=== PATIENT | female | born 1935 | race Caucasian/White ===

== ENCOUNTER 2018-12-20 12:45 | Inpatient (IN) | payer MEDICARE ==
--- NOTE | 2018-12-20 12:59 | CT ---
CT BRAIN WITHOUT CONTRAST: HISTORY:Stroke alert. Slurred speech COMPARISON:02/20/2016 FINDINGS: There are foci of decreased attenuation in the periventricular white matter, consistent with chronic small vessel ischemic disease. Changes of cortical atrophy is stable. No evidence of acute infarct, hemorrhage, midline shift or abnormal extra-axial fluid collections is seen. The ventricular size is appropriate and the basilar cisterns are patent. The bony calvarium is intact. The visualized paranasal sinuses and mastoid air cells are well aerated. IMPRESSION: No CT evidence of acute intracranial process. Discussed over the telephone with ER physician Dr. Mooney at 12:55 PM
[2018-12-20 13:17] LABS: #Eosinphils 0.1 thou/uL (0.0-0.7); #Lymphocytes 0.5 thou/uL (1.20-3.40); #Monocytes 0.4 thou/uL (0.11-0.59); #Neutrophils 4.7 thou/uL (1.40-6.50); %Basophils 0.9 % (0.0-1.0); %Lymphocytes 9.1 % (21.0-51.0); %Monocytes 6.4 % (0.0-10.0); %Neutrophils 82.7 % (42.0-75.0); Hemoglobin 12.8 g/dL (12.0-16.0); Mean Corpuscular HGB CONC 34.2 g/dL (32.0-36.0); Mean Corpuscular Hemoglobin 30.6 pg (27.0-31.0); Mean Corpuscular Volume 89.5 fL (78.0-98.0); Platelet Count 164 thou/uL (130-400); RBC Distribution Width 12.4 % (11.5-14.5); Red Blood Cell (RBC) Count 4.17 mill/uL (4.20-5.40); White Blood Cell (WBC) Count 5.6 thou/uL (4.8-10.8)
[2018-12-20] MEDS ORDERED: Aspirin Chewable 81 MG TAB ONE (13:25)
[2018-12-20 13:33] LABS: INR-International Normal Ratio 1.1; Prothrombin Time 14.3 SEC (12.0-14.7)
[2018-12-20 13:34] LABS: PTT 43.9 SEC (22.9-36.1)
[2018-12-20 13:43] LABS: ALT (SGPT) 9 U/L (8-55); AST (SGOT) 17 U/L (5-34); Alkaline Phosphatase 63 U/L (40-150); Anion Gap 12 mmol/L (10-20); BUN (Urea Nitrogen) 18 mg/dL (9.8-20.1); Bilirubin, Total 0.7 mg/dL (0.2-1.2); CK (CPK) 25 U/L (29-168); Calc. Creatinine Clearance 0 mL/min (70-130); Calcium 9.2 mg/dL (7.8-10.44); Carbon Dioxide 26 mmol/L (23-31); Chloride 92 mmol/L (98-107); Estimated GFR-MDRD 58; Globulin 2.3 g/dL (2.4-3.5); Glucose 110 mg/dL (83-110); Magnesium 1.7 mg/dL (1.6-2.6); Potassium 3.7 mmol/L (3.5-5.1); Protein, Total 6.3 g/dL (6.0-8.3); Sodium 126 mmol/L (136-145)
[2018-12-20 14:38] LABS: Bacteria/HPF None Seen HPF (None Seen); Bilirubin Negative (Negative); Blood, Urine 1+ (Negative); Clarity Clear (Clear); Glucose, Urine (Dipstick) Normal (Negative); Leukocyte Negative Leu/uL (Negative); Nitrite Negative (Negative); Protein, Urine (Dipstick) 20 mg/dL (Neg-Trace); Squamous Epithelial None Seen HPF (0-3); Urobilinogen Normal mg/dL (Less than 2); WBC/HPF 0-3 HPF (0-3)
[2018-12-20] MEDS ORDERED: ISOVUE-370 76%-LOCM 1 ML ONE (15:07)
--- NOTE | 2018-12-20 15:12 | CT ---
CTA HEAD WITH IV CONTRAST AND 3D POSTPROCESSING CTA NECK WITH IV CONTRAST AND 3D POSTPROCESSING: Date: 12/20/18 HISTORY: Slurred speech, stroke alert. FINDINGS: Calcified plaque is noted in the vertebral arteries and the carotid arteries. There is about 40% sten osis by NASCET criteria in the right proximal ICA. No major branch occlusion, aneurysm formation, or high grade stenosis is seen in the vertebrobasilar or internal carotid arterial systems. There is ect ugo of the thoracic aorta with the ascending thoracic aorta measuring 4.0 cm in diameter. The upper lung resendez are unremarkable. There are dependent changes in the spine. There is an 8 mm low density lesion in the right lobe of the thyroid gland. IMPRESSION: No significant abnormalities are seen. Discussed over the telephone with ER physician, Dr. Mooney, at 1316 hours. CODE CR. POS: [facility]
[2018-12-20] MEDS ORDERED: hydrALAZINE 20 MG/ML VIAL SLOW IVP PRN (17:23)
[2018-12-20] MEDS ORDERED: Senokot 8.6 MG TAB PO PRN (17:52)
[2018-12-20] MEDS ORDERED: Famotidine 20 MG TAB PO PRN (17:52)
[2018-12-20] MEDS ORDERED: Acetaminophen 650 MG Suppository PR PRN (17:53)
[2018-12-20] MEDS ORDERED: Ondansetron PF 4 MG/2 ML Vial IVP PRN (17:53)
[2018-12-20] MEDS ORDERED: Acetaminophen 325 MG TAB PO PRN (17:53)
[2018-12-20] MEDS ORDERED: Ondansetron ODT 4 MG TAB PO PRN (17:53)
[2018-12-20] MEDS: traMADol HCl 50 MG TAB PO SCH (20:34)
[2018-12-20] MEDS: Rosuvastatin 20 MG TAB PO SCH (20:34)
[2018-12-20] MEDS: Lisinopril 10 MG TAB PO SCH (20:35)
[2018-12-20] MEDS: Famotidine/PF 20 mg/2ml Vial SLOW IVP SCH (20:51)
[2018-12-21 04:29] LABS: #Eosinphils 0.1 thou/uL (0.0-0.7); #Lymphocytes 1.2 thou/uL (1.20-3.40); #Monocytes 0.5 thou/uL (0.11-0.59); #Neutrophils 3.3 thou/uL (1.40-6.50); %Basophils 0.8 % (0.0-1.0); %Eosinophils 2.3 % (0.0-10.0); %Neutrophils 64.8 % (42.0-75.0); Hemoglobin 11.9 g/dL (12.0-16.0); Mean Corpuscular HGB CONC 35.3 g/dL (32.0-36.0); Mean Corpuscular Hemoglobin 31.4 pg (27.0-31.0); Platelet Count 156 thou/uL (130-400); RBC Distribution Width 12.4 % (11.5-14.5); White Blood Cell (WBC) Count 5.1 thou/uL (4.8-10.8)
[2018-12-21 04:52] LABS: Anion Gap 10 mmol/L (10-20); BUN (Urea Nitrogen) 17 mg/dL (9.8-20.1); Calc. Creatinine Clearance 44 mL/min (70-130); Calcium 9.4 mg/dL (7.8-10.44); Carbon Dioxide 26 mmol/L (23-31); Cardiac Risk 2.6 (Less than 4.5); Chloride 96 mmol/L (98-107); Cholesterol 135 mg/dl (< 200 Desired); Estimated GFR-MDRD 63; Glucose 98 mg/dL (83-110); HDL Cholesterol 52 mg/dL (>60 Neg Risk); LDL Cholesterol, Calculated 70 mg/dL; Potassium 4.1 mmol/L (3.5-5.1); Sodium 128 mmol/L (136-145); Triglycerides 63 mg/dL (Less than 150)
--- NOTE | 2018-12-21 07:37 | HP ---
PRIMARY CARE PHYSICIAN: Dr. Amador. CHIEF COMPLAINT: Slurred speech and fatigue. HISTORY OF PRESENT ILLNESS: Ms. Horowitz is a very pleasant 83-year-old woman with a known history of hypertension, who presents due to concerns of her slurred speech that she developed at approximately 11:30 a.m. She also reported difficulty finding her words. On arrival to the emergency department, she was noted to have an elevated blood pressure of 233/79. Her blood pressure remained in the 200s range while she was in the emergency department. She underwent initial workup for suspected stroke including a CT of the brain that showed no CT evidence of acute intracranial process. This was followed by a CT angiogram of the head and neck demonstrating no significant abnormalities. On assessment in the emergency department, the dysarthria had settled, but her speech was somewhat slurred. She had no extremity numbness or weakness. The patient states she has been struggling with intermittent dizziness, particularly more noticeable when she stands. She has been undergoing adjustment of her blood pressure medications and recently had a decrease in her blood pressure medication by 5 mg as it was suspected the medication was causing her dizziness. She was instructed to keep a log of her blood pressures including orthostatic BPs. Currently, she has been taking lisinopril 10 mg twice a day. While checking her blood pressure for the last week she has noted a significant drop ranging from a difference of 20 to 40. The patient states she is not always symptomatic with the orthostasis. She states she has been maintaining adequate hydration and was instructed by Dr. Amador to drink Gatorade. She denies having any chest pain, palpitations, or shortness of breath. She does, however, report being extremely fatigued for the last week. In the last couple of days, she has been sleeping excessively. She went to bed early last night, woke up for breakfast around 7:00 and went back to bed for another 3 hours. The patient does report falls x2 in the last couple of weeks. She states at one time, it was in the living room and she managed to catch herself with a coffee table; another time, was in the bathroom and she managed to catch her fall again. Has not sustained any head injuries, was evaluated by Dr. Amador following these falls. REVIEW OF SYSTEMS: She denies having any fevers, chills, or sweats. Denies any diarrhea and in fact, suffers from chronic constipation. Denies any dysuria or hematuria. No recent cough. All other review of systems are negative. PAST MEDICAL HISTORY: 1. Hypertension. 2. Degenerative disk disease. PAST SURGICAL HISTORY: Cyst removed from her neck. SOCIAL HISTORY: The patient lives with her family. Up until 2 weeks ago, she was walking independently. She is now requiring a cane due to occasional dizziness. The patient denies any alcohol use, tobacco use, or drug use. ALLERGIES: CODEINE, SULFATE. CURRENT MEDICATIONS: 1. Tramadol. 2. Prilosec OTC. 3. Lisinopril. PHYSICAL EXAMINATION: GENERAL: The patient appears thin, well developed, and in no acute distress. VITAL SIGNS: Temperature 98.4, pulse 75, respirations 18, O2 saturation 97% on room air, blood pressure 97/54; however, it was just repeated and blood pressure was 187. HEENT: Normocephalic and atraumatic. Pupils are equal, round, and reactive to light. Extraocular movements intact. No nystagmus present. Oropharynx is clear. Lips dry. Oral mucous without any lesions or sores. NECK: Supple. LUNGS: Clear to auscultation bilaterally without any wheezes, rales, or rhonchi. CARDIAC: Regular rate and rhythm. ABDOMEN: Soft, nontender, nondistended. Normoactive bowel sounds present. EXTREMITIES: No lower leg swelling or edema. NEUROLOGIC: Alert and oriented x3. Speech normal. Facial movements normal. Strength 5/5 in all extremities. No neuro deficits on exam. SKIN: Without rash or jaundice. LABORATORY DATA: Full blood count unremarkable. Sodium 126, potassium 3.7, chloride 92, anion gap 12, carbon oxide 26, BUN 19, creatinine 0.93, GFR 58, glucose 110, calcium 9.2, magnesium 1.7. LFTs unremarkable. CK 25. Alkaline phosphatase 63, albumin 4.9. Urinalysis notable for 1+ blood and 4 to 6 red blood cells, but no bacteria, no nitrites, leukocyte esterase or white blood cells. IMAGING DATA: As above. IMPRESSION AND PLAN: Ms. Horowitz is a very pleasant 83-year-old woman, presenting with slurred speech and dysarthria. Symptoms have resolved. She had severely elevated blood pressure of 230 systolic on arrival. Her blood pressure has settled. She was treated with aspirin in the emergency department and referred for stroke evaluation. 1. Transient ischemic attack. We will obtain MRI of the brain. She has undergone CT angiogram of the head and neck, which was unremarkable. Therefore, no carotid Dopplers . Neurology consult has been placed. 2. Orthostasis. The patient has documented blood pressures and continued droppage in her lying and standing blood pressures of 20 to 40. We will repeat orthostatic blood pressures here. This very well may be the cause of her dizziness, though she does not seem to be on any medications that would contribute to this and states she has been maintaining adequate hydration. The patient does have a low sodium of 126, which is lower than it has been in recent visits. We will give IV fluids and monitor her sodium. Echo has been requested. 3. Hypertension. We will continue to monitor blood pressure and resume home medications. 4. Gastrointestinal prophylaxis. 5. Deep venous thrombosis prophylaxis with mechanical SCDs. 6. Generalized fatigue. We will rule out any underlying infection. We will obtain PT/OT consult. 7. Code status. DNAR. Her surrogate decision maker is her daughter, Terri Conner. The patient states she has had advanced directives in place for a few years. The patient's case was discussed with Dr. Valente, who agrees with the plan of care as described above. Job ID: [id number]
[2018-12-21] MEDS: Lisinopril 10 MG TAB PO SCH ×2 (08:29→20:59)
[2018-12-21] MEDS: traMADol HCl 50 MG TAB PO SCH ×2 (08:29→21:00)
[2018-12-21] MEDS: Aspirin 81 mg Enteric Coated Tablet PO SCH (08:29)
[2018-12-21] MEDS: Famotidine/PF 20 mg/2ml Vial SLOW IVP SCH ×2 (08:30→20:59)
[2018-12-21] MEDS ORDERED: Lorazepam 0.5 MG TAB PO SCH (09:45)
--- NOTE | 2018-12-21 15:14 | RAD ---
CHEST 2 VIEWS: Date: 12/21/18 HISTORY: Dizziness and shortness of breath. FINDINGS: The heart size is normal. The aorta is tortuous. The lungs are well expanded without lobar consolidat ion, pneumothoraces, or pleural effusions. There are degenerative changes in the spine. IMPRESSION: No radiographic evidence of acute cardiopulmonary process. POS: [facility]
--- NOTE | 2018-12-21 15:20 | MRI ---
MRI BRAIN WITHOUT CONTRAST: INDICATION: TIA. COMPARISON: Comparison is made to MRI of brain 02/21/2016. FINDINGS: Motion artifact degrades all sequences. There is mild cortical volume loss. Mild chronic ischemic white matter changes which appear stable f 2015. No evidence of restricted diffusion. No evidence of mass, edema, or acute infarct. 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 This is a stable finding from 2016. The intracranial internal carotid arteries are patent. Proximal cerebral arteries and basilar arteries show expected flow voids. IMPRESSION: Mild cortical atrophy and mild to moderate chronic ischemic white matter changes which appear stable from 2016. No evidence of acute infarct. POS: [facility]
--- NOTE | 2018-12-21 16:04 | PDOC.HOSPP ---
- Subjective Encounter Date: 12/21/18 Encounter Time: 16:00 Subjective: Patient found resting comfortably. She is without any complaints. Seems to be in good spirits. Per daughter and granddaughter she was drowsy and confused after the MRI. Had been given 0.5 mg PO of ativan due to claustrophobia. Patient alert to person and place. Speech is normal. Per family she was recently seen by pcp who discontinued amlodipine 5 mg PO daily. She was on Lisinopril 20 mg at bedtime and this was changed to 10 mg bid. There was a similar problem with her blood pressure in the past and it had stabilized, however recently became uncontrolled. She has been experiencing lightheadedness when standing and when leaning forward she gets dizzy and starts to fall head first. Has had several falls in the last couple of weeks because of this. Family concerned it may be due to the patient reacting to the warm weather and increasing her free water intake at home. She had not been drinking much fluids while here. Spends most of her time sleeping at home. Two weeks ago was functioning well and walking independently. - Objective Vital Signs & Weight: Vital Signs (12 hours) Temp Pulse Pulse Pulse Pulse Pulse Pulse 12/21/18 15:42 97.7 F 73 12/21/18 12:00 98.3 F 71 12/21/18 09:48 82 83 90 86 12/21/18 09:20 73 75 88 94 86 12/21/18 08:30 12/21/18 08:29 12/21/18 07:56 97.9 F 65 Resp BP BP BP BP BP BP 12/21/18 15:42 16 12/21/18 12:00 16 12/21/18 09:48 99/53 L 103/43 L 128/95 H 197/69 H 12/21/18 09:20 152/65 H 145/63 H 98/41 L 114/56 L 147/59 H 12/21/18 08:30 12/21/18 08:29 145/52 H 12/21/18 07:56 17 BP Pulse Ox 12/21/18 15:42 136/49 L 95 12/21/18 12:00 200/64 H 94 L 12/21/18 09:48 12/21/18 09:20 12/21/18 08:30 95 12/21/18 08:29 12/21/18 07:56 145/52 H 95 Weight Admit Weight 123 lb Weight 123 lb I&O: 12/20/18 12/21/18 12/22/18 06:59 06:59 06:59 Intake Total 410 240 Balance 410 240 Result Diagrams: 12/22/18 04:25 12/22/18 04:25 ROS - Review of Systems Constitutional: denies: fever, chills, sweats, weakness, malaise, other Eyes: denies: pain, vision change, conjunctivae inflammation, eyelid inflammation, redness, other ENT: denies: ear pain, ear discharge, nose pain, nose discharge, nose congestion , mouth pain, mouth swelling, throat pain, throat swelling, other Respiratory: denies: cough, dry, shortness of breath, hemoptysis, SOB with excertion, pleuritic pain, sputum, wheezing, other Cardiovascular: reports: light headedness (per patient she has not been as lightheaded). denies: chest pain, palpitations, orthopnea, paroxysmal noc. dyspnea, edema, other Gastrointestinal: denies: nausea, vomitting, abdominal pain, diarrhea, constipation, melena, hematochezia, other Genitourinary: denies: dysuria, frequency, incontinence, hematuria, retention, other Musculoskeletal: denies: neck pain, shoulder pain, arm pain, back pain, hand pain, leg pain, foot pain, other Skin: denies: rash, lesions, radha, bruising, other Neurological: reports: confusion - Medication Medications: Active Medications Generic Name Dose Route Start Last Admin Trade Name Freq PRN Reason Stop Dose Admin Aspirin 81 mg 12/21/18 09:00 12/21/18 08:29 Ecotrin PO 81 mg DAILY LILLIE Administration Famotidine 20 mg 12/20/18 21:00 12/21/18 08:30 Pepcid SLOW IVP 20 mg Q12HR LILLIE Administration Lisinopril 10 mg 12/20/18 21:00 12/21/18 08:29 Zestril PO 10 mg BID LILLIE Administration Rosuvastatin Calcium 20 mg 12/20/18 21:00 12/20/18 20:34 Crestor PO 20 mg HS LILLIE Administration Sodium Chloride 10 ml 12/20/18 17:23 12/21/18 08:30 Flush - Normal Saline IVF 10 ml PRN PRN Administration Saline Flush Tramadol HCl 50 mg 12/20/18 21:00 12/21/18 08:29 Ultram PO 50 mg BID LILLIE Administration - Exam NAD, awake alert Eye: PERRL, anicteric sclera ENT: normocephalic atraumatic, no oropharyngeal lesions, moist mucosa Neck: supple, no lymphadenopathy Heart: RRR, no murmur, no gallops, no rubs Respiratory: CTAB Gastrointestinal: soft, non-tender, non-distended Extremities: no cyanosis, no clubbing, no edema Skin: no lesions, no rashes Neurological: normal sensation to touch, no new deficit Musculoskeletal: normal tone, normal strength Psychiatric: normal affect, oriented to person, oriented to place (slightly confused, was sleeping but easily woken) Hosp A/P (1) Slurred speech Code(s): R47.81 - SLURRED SPEECH Status: Resolved (2) Orthostatic hypotension Code(s): I95.1 - ORTHOSTATIC HYPOTENSION Status: Acute (3) Hyponatremia Code(s): E87.1 - HYPO-OSMOLALITY AND HYPONATREMIA Status: Acute - Plan PT/OT Na+ slightly improved. Gentle hydration given decreased fluid intake as she has been sleeping. Awaiting cardiology review. Slightly confused and drowsy after ativan, will monitor. PT/OT following, patient with good strength. Patient in need of rolling walker.
[2018-12-21] MEDS: Sodium Chloride 0.9% 1,000 ML IV SCH (17:22)
[2018-12-21] MEDS: Rosuvastatin 20 MG TAB PO SCH (21:01)
--- NOTE | 2018-12-21 21:07 | CON ---
DATE OF TELEMEDICINE CONSULTATION: 12/21/2018 RN accompanying is Quinton Mohr. CHIEF COMPLAINT: Weakness. HISTORY OF PRESENT ILLNESS: The patient's family gave medical history. The patient has been pretty weak for the last 2 to 3 weeks. She has had issues with orthostatic hypotension. Her blood pressure can go from 215/100 down to 90/45. She has increased sleepiness, nausea, and at about 11:00 a.m. yesterday, she had slurred speech, which lasted 1.5 hours. They could not understand her. Right before that, she felt like her hands were tingly. She has had increased falls lately. She has not had any weakness or loss of consciousness or vision problems. PREVIOUS MEDICAL HISTORY: Positive for hypertension, degenerative joint disease in her back with chronic back pain. She received nerve block recently and is scheduled for another procedure. She also has hyponatremia in the past. PAST SURGICAL HISTORY: She had a subcutaneous neck cyst and had vein stripping years ago. SOCIAL HISTORY: She lives by self, stays close to family about 50% of the time. ALLERGIES: SHE IS ALLERGIC TO CODEINE, WHICH CAUSES NAUSEA AND SHE ALSO IS ALLERGIC TO SULFATE, UNCLEAR WHAT ALLERGY IT IS. FAMILY HISTORY: Dad passed at 47 years of age from TB. Mother at 86. She was a smoker, COPD and had heart disease. She is not on aspirin or statin at home. REVIEW OF SYSTEMS: PULMONARY: Negative for shortness of breath and cough. GI: Negative for nausea, vomiting, or diarrhea. HEMATOLOGIC: Negative for bleeding or diatheses. NEUROLOGIC: Positive for slurred speech. DERMATOLOGIC: Negative. LABORATORY WORKUP: White count 5.1, hemoglobin 11.9, hematocrit 33.8, and platelet count 156. Chemistry; sodium 128, potassium 4.1, chloride 96, bicarb 26, BUN 17 , creatinine 0.86, and glucose 98. Cholesterol panel is normal. BNP 704. TSH 0.[address] [place] was negative for any critical stenosis of her arteries and CT angiography of the neck was also negative for any specific abnormalities and her MRI of the brain was completed and MRI showed mild cortical atrophy, [id number] chronic ischemic white matter changes which are stable. No acute infarct. PHYSICAL EXAMINATION: VITAL SIGNS: Temperature 97.9, pulse 65, blood pressure 145/52, and respiratory rate 17. GENERAL APPEARANCE: Well-built, well-nourished lady. CHEST: Clear vesicular breathing. CARDIOVASCULAR: S1 and S2 heard. No murmurs. ABDOMEN: Soft and nontender. No organomegaly noted. NEUROLOGIC: Higher intellectual functions normal. Orientation to time, place, and person. Appropriate conversation. Cranial nerves 2 through 12 normal. Pupils are reactive, 2 mm. No facial asymmetry. Normal sensation of face. Normal elevation of palate. Tongue midline. Normal hearing. Motor examination, no pronator drift was noted. Strength was 5/5 throughout in upper and lower extremities in iliopsoas, hamstrings, quadriceps, ankle dorsiflexion, plantar flexion, deltoid, biceps, triceps, wrist extension and flexion, finger extension and flexion. Deep tendon reflexes 2+. Sensory normal to touch, normal bilaterally. Cerebellar, normal [id number]. Gait, she was able to walk with a walker. IMPRESSION: The patient is an 83-year-old lady with a history of slurred speech and orthostatic hypotension and the slurred speech lasted about 1.5 hours. She also has chronic back pain and has had recent procedure. Her examination was essentially normal. She had hyponatremia on her lab workup. MRI is negative for any acute stroke. I suspect her blood pressure might have caused her to have slurred speech. She may also have had a transient ischemic attack. RECOMMENDATIONS: Start her on aspirin and statin. Please complete her TIA workup including echocardiogram. Please have her follow up with her primary care doctor. Call me if you have any further questions. Job ID: [id number] MTDD
--- NOTE | 2018-12-22 03:25 | CON ---
DATE OF CONSULTATION: HISTORY OF PRESENT ILLNESS: Maureen Horowitz is a pleasant 83-year-old white female who is admitted after an episode of weakness and slurred speech that she developed on December 20 at 11:30 a.m. The family stated that they checked her blood pressure at that time, and it was 105 systolic. When she arrived to the emergency room, her blood pressure was 233/79 and her symptoms had resolved. She underwent CT of the brain, which was unremarkable. CT angiography and [place] angiography were normal. She underwent MRI of the brain, which did not show any evidence of stroke. She was given Ativan prior to the MRI, and since then has been very somnolent and disoriented according to the family. The patient denies any chest discomfort or shortness of breath. She was seen by Dr. Shankar in February 2016 in the hospital when she had a syncopal episode after starting hydrochlorothiazide. Family states that usually when she is supine in bed, she does not have any problems, and whenever she stands up, she becomes dizzy and lightheaded. PAST MEDICAL HISTORY: Labile hypertension and orthostatic hypotension, osteoarthritis, reflux. OPERATIONS: Cyst removed from neck. MEDICATIONS: At home, 1. Pepcid 10 mg b.i.d. p.r.n. 2. Lisinopril 10 mg b.i.d. 3. Omeprazole 20 daily. 4. Senokot p.r.n. 5. Ultram 50 b.i.d. ALLERGIES: CODEINE. SOCIAL HISTORY: She does not smoke or drink. REVIEW OF SYSTEMS: Unobtainable due to the patient's confusion at this time. PHYSICAL EXAMINATION: VITAL SIGNS: Blood pressure 200/64, pulse of 71, and also blood pressures as low as 98/41. It is unclear if these are orthostatic blood pressures. HEENT: PERRL. NECK: Supple. CHEST: Clear. CARDIAC: S1 and S2 normal without any S3 or S4. There is a 2/6 systolic ejection murmur at the apex. Carotid upstrokes normal without bruits. ABDOMEN: Normal bowel sounds without tenderness or organomegaly. EXTREMITIES: Revealed no clubbing, cyanosis, or edema. NEUROLOGIC: Grossly intact except for the patient's confusion. LABORATORY DATA: EKG revealed normal sinus rhythm, left axis deviation, possible septal infarction. Hemoglobin 11.9, hematocrit 33.8, white count 5100, platelets 156,000. Sodium 128, potassium 4.1, chloride 96, carbon dioxide 26, BUN 17, creatinine 0.86. Cholesterol 135, triglycerides 63, HDL 52, LDL 70. BNP 704.7. TSH is normal. IMPRESSION: 1. Orthostatic hypotension with neurological symptoms of slurred speech, which apparently only lasted several minutes. 2. Hypertension. 3. Gastroesophageal reflux disease. 4. History of bradycardia in the past. 5. Hyponatremia, which certainly could be due to the MARICEL inhibitor. PLAN: Echocardiogram will be performed. A.M. cortisol level will be obtained in the morning to rule out adrenal insufficiency. This certainly is a very difficult problem to treat and this was discussed with the patient and daughter. I will follow the patient with you. Job ID: [id number]
[2018-12-22 04:40] LABS: #Eosinphils 0.2 thou/uL (0.0-0.7); #Monocytes 0.5 thou/uL (0.11-0.59); #Neutrophils 3.3 thou/uL (1.40-6.50); %Basophils 0.7 % (0.0-1.0); %Eosinophils 4.6 % (0.0-10.0); %Lymphocytes 19.2 % (21.0-51.0); %Monocytes 9.3 % (0.0-10.0); %Neutrophils 66.2 % (42.0-75.0); Hemoglobin 11.3 g/dL (12.0-16.0); Mean Corpuscular HGB CONC 33.8 g/dL (32.0-36.0); Mean Corpuscular Hemoglobin 30.6 pg (27.0-31.0); Mean Corpuscular Volume 90.5 fL (78.0-98.0); Mean Platelet Volume 6.8 fL (7.4-10.4); Platelet Count 151 thou/uL (130-400); RBC Distribution Width 12.3 % (11.5-14.5); Red Blood Cell (RBC) Count 3.69 mill/uL (4.20-5.40)
[2018-12-22 04:59] LABS: Anion Gap 8 mmol/L (10-20); BUN (Urea Nitrogen) 19 mg/dL (9.8-20.1); Calc. Creatinine Clearance 45 mL/min (70-130); Calcium 9.2 mg/dL (7.8-10.44); Carbon Dioxide 29 mmol/L (23-31); Chloride 99 mmol/L (98-107); Estimated GFR-MDRD 66; Glucose 100 mg/dL (83-110); Potassium 3.9 mmol/L (3.5-5.1); Sodium 132 mmol/L (136-145)
[2018-12-22 05:20] VITALS: BMI 20.4
[2018-12-22] MEDS: Aspirin 81 mg Enteric Coated Tablet PO SCH (09:48)
[2018-12-22] MEDS: traMADol HCl 50 MG TAB PO SCH ×2 (09:48→20:26)
[2018-12-22] MEDS: Lisinopril 10 MG TAB PO SCH (09:49)
[2018-12-22] MEDS: Famotidine/PF 20 mg/2ml Vial SLOW IVP SCH ×2 (09:50→20:28)
--- NOTE | 2018-12-22 11:43 | PRG ---
DATE OF TELEMEDICINE SERVICE: 12/22/2018, JACQUELINE PHILIP CHIEF COMPLAINT: Dizziness and altered mental status. INTERVAL HISTORY: The patient has been stable. Daughter states she became confused and was hallucinating all night. She thought it might be secondary to Ativan and she was hallucinating even when her granddaughter was visiting. Her current lab workup; white count 5.0, hemoglobin 11.3, hematocrit 33.4, and platelet count 151. Chemistry; sodium 132, potassium 3.9, chloride 99, bicarb 29, BUN 19, creatinine 0.83, and glucose 100. Cortisol 7.40. Lipid profile was normal. TSH 0.7. PHYSICAL EXAMINATION: VITAL SIGNS: Blood pressure was 156/53, temperature 98.6, pulse 87, and respiratory rate 19. GENERAL APPEARANCE: Thin built, well-nourished lady. NEUROLOGIC: She was oriented to time, place, and person. She had dysarthria and mild confusion during the exam. Cranial nerves, normal extraocular movements. Tongue midline. No facial asymmetry. Motor, normal strength bilaterally. IMPRESSION: The patient is an 83-year-old lady, who is admitted for weakness and confusion. Her stroke workup is negative. Her examination shows mild confusion and hallucinations. This could be likely secondary to her hyponatremia. Her current sodium level is 132, and she has had slow correction of her sodium since admission. Her admission sodium level was at 126. Rest of her lab workup is negative. At this time, she is neurologically stable except for confusion, which is likely from metabolic issues such as hyponatremia and sundowning due to age. RECOMMENDATIONS: No further workup from my side. Please continue to manage her medically. If you need any further assistance, please call me. Job ID: [id number] MTDD
[2018-12-22] MEDS: Sodium Chloride 0.9% 1,000 ML IV SCH (14:29)
--- NOTE | 2018-12-22 16:07 | PDOC.HOSPP ---
- Subjective Encounter Date: 12/22/18 Encounter Time: 12:04 Subjective: Patient feeling well, sitting in chair having lunch. Denies any chest pain, palpitations, shortness of breath or dizziness. No nausea or vomiting. States she saw Dr. Hernandez yesterday and remembered him from when he treated her . Eager to hear his recommendations today. States she has been feeling well in herself. Denies any complaints. Has not felt dizzy while standing today. - Objective Vital Signs & Weight: Vital Signs (12 hours) Temp Pulse Resp BP BP BP Pulse Ox 12/22/18 11:59 97.6 F 76 14 139/45 L 96 12/22/18 09:49 156/53 H 12/22/18 09:40 98.6 F 87 19 156/53 H 97 12/22/18 09:05 97 12/22/18 05:45 68 192/58 H 12/22/18 05:18 192/58 H Weight Admit Weight 123 lb Weight 126 lb 6.4 oz I&O: 12/21/18 12/22/18 12/23/18 06:59 06:59 06:59 Intake Total 410 1210 Balance 410 1210 Result Diagrams: 12/22/18 04:25 12/22/18 04:25 ROS - Review of Systems Constitutional: denies: fever, chills, sweats, weakness, malaise, other Eyes: denies: pain, vision change, conjunctivae inflammation, eyelid inflammation, redness, other ENT: denies: ear pain, ear discharge, nose pain, nose discharge, nose congestion , mouth pain, mouth swelling, throat pain, throat swelling, other Respiratory: denies: cough, dry, shortness of breath, hemoptysis, SOB with excertion, pleuritic pain, sputum, wheezing, other Cardiovascular: denies: chest pain, palpitations, orthopnea, paroxysmal noc. dyspnea, edema, light headedness, other Gastrointestinal: denies: nausea, vomitting, abdominal pain, diarrhea, constipation, melena, hematochezia, other Genitourinary: denies: dysuria, frequency, incontinence, hematuria, retention, other Musculoskeletal: denies: neck pain, shoulder pain, arm pain, back pain, hand pain, leg pain, foot pain, other Skin: denies: rash, lesions, radha, bruising, other Neurological: denies: weakness, numbness, incoordination, change in speech, confusion, seizures, other - Medication Medications: Active Medications Generic Name Dose Route Start Last Admin Trade Name Shawnq PRN Reason Stop Dose Admin Aspirin 81 mg 12/21/18 09:00 12/22/18 09:48 Ecotrin PO 81 mg DAILY LILLIE Administration Famotidine 20 mg 12/20/18 21:00 12/22/18 09:50 Pepcid SLOW IVP 20 mg Q12HR LILLIE Administration Hydralazine HCl 10 mg 12/20/18 17:23 12/22/18 05:45 Apresoline SLOW IVP 10 mg Q4H PRN Administration BP > 160/100 Sodium Chloride 1,000 mls @ 50 mls/hr 12/21/18 16:00 12/22/18 14:29 Normal Saline 0.9% IV Not Given .Q20H LILLIE Lisinopril 10 mg 12/20/18 21:00 12/22/18 09:49 Zestril PO 10 mg BID LILLIE Administration Rosuvastatin Calcium 20 mg 12/20/18 21:00 12/21/18 21:01 Crestor PO 20 mg HS LILLIE Administration Sodium Chloride 10 ml 12/20/18 17:23 12/21/18 08:30 Flush - Normal Saline IVF 10 ml PRN PRN Administration Saline Flush Tramadol HCl 50 mg 12/20/18 21:00 12/22/18 09:48 Ultram PO 50 mg BID LILLIE Administration - Exam NAD, awake alert Eye: PERRL, anicteric sclera ENT: normocephalic atraumatic, no oropharyngeal lesions, moist mucosa Neck: supple, symmetric, no JVD, no thyromegaly, no lymphadenopathy, no carotid bruit Heart: RRR, no murmur, no gallops, no rubs, normal peripheral pulses Respiratory: CTAB, no wheezes, no rales, no ronchi, normal chest expansion, no tachypnea Gastrointestinal: soft, non-tender, non-distended, normal bowel sounds, no guarding, no rigidity Extremities: no cyanosis, no clubbing, no edema Skin: normal turgor, no lesions Neurological: CN's grossly intact Musculoskeletal: normal tone, normal strength Psychiatric: normal affect, normal behavior, A&O x 3 Hosp A/P (1) Slurred speech Code(s): R47.81 - SLURRED SPEECH Status: Resolved (2) Orthostatic hypotension Code(s): I95.1 - ORTHOSTATIC HYPOTENSION Status: Acute Plan: Persistent, seen by Dr. Hernandez and AM cortisol ordered. Results were normal. Awaiting further review/recommendations. Patient asymptomatic today. (3) Hyponatremia Code(s): E87.1 - HYPO-OSMOLALITY AND HYPONATREMIA Status: Acute Plan: Continues to improve. - Plan Na+ slightly improved. Gentle hydration given decreased fluid intake as she has been sleeping. PT/OT following, patient with good strength. Patient in need of rolling walker. Patient is for and [facility] with PT.
[2018-12-22] MEDS: Rosuvastatin 20 MG TAB PO SCH (20:26)
[2018-12-22] MEDS ORDERED: Amlodipine 5 MG TAB PO SCH (21:00)
[2018-12-23] MEDS ORDERED: Famotidine 20 MG TAB PO SCH (09:00)
[2018-12-23] MEDS: Sodium Chloride 0.9% 1,000 ML IV SCH (09:00)
[2018-12-23] MEDS ORDERED: Lisinopril 10 MG TAB PO SCH (09:00)
[2018-12-23] MEDS: Aspirin 81 mg Enteric Coated Tablet PO SCH (09:31)
[2018-12-23] MEDS: traMADol HCl 50 MG TAB PO SCH (09:34)
[2018-12-23 09:45] LABS: Hemoglobin 13.3 g/dL (12.0-16.0); Mean Corpuscular HGB CONC 34.4 g/dL (32.0-36.0); Mean Corpuscular Hemoglobin 31.6 pg (27.0-31.0); Mean Corpuscular Volume 91.7 fL (78.0-98.0); Mean Platelet Volume 7.1 fL (7.4-10.4); Platelet Count 179 thou/uL (130-400); RBC Distribution Width 12.6 % (11.5-14.5); Red Blood Cell (RBC) Count 4.22 mill/uL (4.20-5.40); White Blood Cell (WBC) Count 5.2 thou/uL (4.8-10.8)
[2018-12-23 10:01] LABS: Anion Gap 13 mmol/L (10-20); BUN (Urea Nitrogen) 24 mg/dL (9.8-20.1); Calc. Creatinine Clearance 35 mL/min (70-130); Calcium 9.2 mg/dL (7.8-10.44); Carbon Dioxide 25 mmol/L (23-31); Chloride 97 mmol/L (98-107); Estimated GFR-MDRD 48; Glucose 142 mg/dL (83-110); Potassium 3.6 mmol/L (3.5-5.1); Sodium 131 mmol/L (136-145)
[2018-12-23 12:14] VITALS: BP 117/41; TEMP 97.8
--- NOTE | 2018-12-24 01:13 | DIS ---
DATE OF ADMISSION: 12/20/2018 DATE OF DISCHARGE: 12/23/2018 REASON FOR HOSPITALIZATION: Confusion, hyponatremia, and blood pressure problems. SIGNIFICANT FINDINGS: The patient was found to be hyponatremic. Reported to be 126 at the lowest. The patient also found to have elevated blood pressure and required blood pressure medications adjustment. CONDITION ON DISCHARGE: Stable. The patient able to walk with front-wheeled walker. SPECIFIC INSTRUCTIONS FOR FAMILY/PATIENT: The patient is recommended to avoid excessive free water intake as this worsens hyponatremia and low sodiums may worsen her mental status, cause trouble walking, falls, and even . The patient is recommended to take blood pressure medications as directed and keep a blood pressure log. The patient to follow up with primary care physician in the next 5 to 7 days. The patient to follow up with civil draftsman. DISCHARGE MEDICATIONS: 1. Amlodipine 5 mg one tab p.o. daily. 2. Lisinopril 10 mg one tab p.o. daily. 3. Aspirin 81 mg one tab p.o. daily. 4. Tramadol 50 mg one tab p.o. b.i.d. p.r.n. pain. 5. Omeprazole 20 mg one tab p.o. daily. 6. Famotidine 10 mg one tab p.o. b.i.d. p.r.n. indigestion. DIAGNOSES: 1. Hyponatremia. 2. Dysarthria. 3. Slurred speech. 4. Altered mental status. 5. Gastroesophageal reflux disease. 6. Hypertension. HOSPITAL COURSE: Ms. Horowitz is a very pleasant 83-year-old white female who presented to [facility] on 12/20/2018 with neurologic symptoms. Initially, there was concern that the patient might have had CVA as she was suffering from slurred speech, dysarthria, and altered mental status. The patient was admitted to stroke observation unit for close observation and further workup. The patient had MRI of the brain, please see -full report for details. There is mild cortical atrophy and [id number] chronic white matter changes appropriate for the patient's age and stable in condition since 2016 without evidence of any acute infarction. With a negative MRI of the brain, other causes of altered mental status were reviewed and it was determined that likely hyponatremia is main culprit. As the patient's sodium did improve throughout her hospitalization, she did return back to her baseline status. The patient was seen by neurologist and civil draftsman, please see full consultation and progress notes for details. Neurology recommending no further acute inpatient workup, recommending to avoid benzodiazapine medications as these are known to worsen encephalopathy. Linker Up suggesting blood pressure medications and the patient was recommended to keep blood pressure log and continue titration of these medications in the home setting. The patient worked with physical therapy and occupational therapy, who recommended home healthcare, front wheel walker, bedside commode, and that the patient was safe for discharge home with home healthcare. I evaluated the patient on 12/23/2018 and she is alert and oriented x3 with good insight into her clinical condition. I instructed the patient on ways to avoid hyponatremia and the patient does admit to me that she does drink a lot of water and she attributes this to the high heat and summer. I informed the patient limiting free water intake, consuming solutions with salt such as Gatorade or Pedialyte will help avoid hyponatremia. Patient's family tells me that she has an upcoming appointment with mobile paint specialist for degenerative changes of the spine and I do not see any contraindications to continue with this upcoming procedure on Tuesday. I do recommend that the patient followup with primary care physician in the next 5 to 7 days. Followup with civil draftsman in the next 5 to 7 days. The patient was recommended to follow up concerning statin therapy with her primary care physician and civil draftsman. Medication was offered, however, declined. Job ID: [id number]
[2018-12-24] MEDS ORDERED: Famotidine 20 MG TAB PO SCH (09:00)
== END 2018-12-23 14:28 | disposition home health service (06) | DRG 641 ==
LOC: ERS 12:45 → 2SE 14:50
PROVIDERS: ADMIT Internal Medicine; ATTEND Internal Medicine
DX: E87.1 Hypo-osmolality and hyponatremia (principal); F05 Delirium due to known physiological condition; I95.1 Orthostatic hypotension; Z66 Do not resuscitate; M54.9 Dorsalgia, unspecified; R47.81 Slurred speech; G89.29 Other chronic pain; I10 Essential (primary) hypertension; Z98.890 Other specified postprocedural states; Z88.2 Allergy status to sulfonamides; Z88.5 Allergy status to narcotic agent; Z79.899 Other long term (current) drug therapy
CPT/HCPCS: 36415; 36416; 51701; 70450; 70496; 70498; 70551; 71046; 80048; 80053; 80061; 81003; 81015; 82533; 82550; 83735; 83880; 84443; 84484; 85025; 85027; 85610; 85730; 93005; 93306; A4353; J0360; Q0162; Q9966; S0028

== ENCOUNTER 2020-09-07 19:13 | Inpatient (IN) | payer MEDICARE ==
[2020-09-07] MEDS ORDERED: Morphine 4 MG/ML VIAL ONE (19:49)
[2020-09-07 20:21] LABS: #Eosinphils 0.1 thou/uL (0.0-0.7); #Lymphocytes 0.8 thou/uL (1.20-3.40); #Monocytes 0.4 thou/uL (0.11-0.59); #Neutrophils 5.8 thou/uL (1.40-6.50); %Basophils 0.2 % (0.0-1.0); %Eosinophils 1.4 % (0.0-10.0); %Monocytes 5.3 % (0.0-10.0); %Neutrophils 82.2 % (42.0-75.0); Hemoglobin 11.9 g/dL (12.0-16.0); Mean Corpuscular HGB CONC 33.4 g/dL (32.0-36.0); Mean Corpuscular Hemoglobin 31.5 pg (27.0-31.0); Mean Corpuscular Volume 94.4 fL (78.0-98.0); Mean Platelet Volume 7.4 fL (7.4-10.4); Platelet Count 160 thou/uL (130-400); RBC Distribution Width 11.5 % (11.5-14.5); Red Blood Cell (RBC) Count 3.77 mill/uL (4.20-5.40)
[2020-09-07 20:28] LABS: INR-International Normal Ratio 1.1; Prothrombin Time 14.6 sec (12.0-14.7)
[2020-09-07 20:29] LABS: PTT 48.3 sec (22.9-36.1)
[2020-09-07 20:35] LABS: ALT (SGPT) 10 U/L (8-55); AST (SGOT) 28 U/L (5-34); Albumin 3.8 g/dL (3.4-4.8); Alkaline Phosphatase 68 U/L (40-110); Anion Gap 14 mmol/L (10-20); BUN (Urea Nitrogen) 26 mg/dL (9.8-20.1); Bilirubin, Total 0.5 mg/dL (0.2-1.2); Calc. Creatinine Clearance 0 mL/min (70-130); Calcium 8.8 mg/dL (7.8-10.44); Carbon Dioxide 20 mmol/L (23-31); Chloride 106 mmol/L (98-107); Globulin 2.8 g/dL (2.4-3.5); Glucose 119 mg/dL (83-110); Potassium 3.9 mmol/L (3.5-5.1); Protein, Total 6.6 g/dL (5.8-8.1); Sodium 136 mmol/L (136-145)
[2020-09-07 21:59] LABS: Bacteria/HPF None Seen HPF (None Seen); Bilirubin Negative (Negative); Blood, Urine 1+ (Negative); Clarity Clear (Clear); Glucose, Urine (Dipstick) 30 mg/dL (Negative); Ketone, Urine Negative (Negative); Leukocyte Negative Leu/uL (Negative); Nitrite Negative (Negative); Protein, Urine (Dipstick) 20 mg/dL (Neg-Trace); Specific Gravity, Urine 1.013 (1.002-1.036); Squamous Epithelial None Seen HPF (0-3); Urobilinogen Normal mg/dL (Less than 2); WBC/HPF 0-3 HPF (0-3); pH, Urine 7.5 (5.0-9.0)
[2020-09-07] MEDS ORDERED: Ondansetron PF 4 MG/2 ML Vial IVP PRN (22:14)
[2020-09-07] MEDS ORDERED: Dextrose 50% Abboject 50 ML SYRINGE SLOW IVP PRN (22:14)
[2020-09-07] MEDS ORDERED: Dextrose 5% in Water 1,000 ML IV PRN (22:14)
[2020-09-07] MEDS ORDERED: Morphine 4 MG/ML VIAL SLOW IVP PRN (22:14)
[2020-09-07] MEDS ORDERED: CEFAZOLIN 2 GM in Premix Bag 1 BAG IVPB SCH (22:15)
[2020-09-07] MEDS ORDERED: Ibuprofen 200 MG TAB PO PRN (22:21)
[2020-09-07] MEDS ORDERED: traMADol HCl 50 MG TAB PO PRN (22:21)
[2020-09-07] MEDS ORDERED: Lidocaine 4% Cream 5 GM TUBE w/ Tegaderm ONE (22:50)
[2020-09-07] MEDS ORDERED: Bacitracin 1 PK ONE (22:59)
[2020-09-07] MEDS: traMADol HCl 50 MG TAB PO SCH (23:45)
[2020-09-07] MEDS: Sodium Chloride 0.9% 1,000 ML IV SCH (23:46)
[2020-09-07] MEDS: Acetaminophen 500 MG TAB PO SCH (23:46)
[2020-09-08] MEDS: hydrALAZINE 20 MG/ML VIAL SLOW IVP PRN (00:12)
[2020-09-08 01:16] VITALS: BMI 19.3
[2020-09-08] MEDS: traMADol HCl 50 MG TAB PO SCH ×4 (05:44→23:25)
[2020-09-08] MEDS: Acetaminophen 500 MG TAB PO SCH ×4 (05:44→23:25)
[2020-09-08 05:53] LABS: #Lymphocytes 0.6 thou/uL (1.20-3.40); #Monocytes 0.5 thou/uL (0.11-0.59); #Neutrophils 9.3 thou/uL (1.40-6.50); %Basophils 0.3 % (0.0-1.0); %Eosinophils 0.2 % (0.0-10.0); %Lymphocytes 5.4 % (21.0-51.0); %Monocytes 5.1 % (0.0-10.0); %Neutrophils 89.1 % (42.0-75.0); Hemoglobin 11.3 g/dL (12.0-16.0); Mean Corpuscular HGB CONC 33.6 g/dL (32.0-36.0); Mean Corpuscular Volume 95.1 fL (78.0-98.0); Mean Platelet Volume 7.9 fL (7.4-10.4); Platelet Count 147 thou/uL (130-400); RBC Distribution Width 11.6 % (11.5-14.5); Red Blood Cell (RBC) Count 3.54 mill/uL (4.20-5.40); White Blood Cell (WBC) Count 10.4 thou/uL (4.8-10.8)
[2020-09-08] MEDS: Sodium Chloride 0.9% 1,000 ML IV SCH ×2 (05:58→16:47)
[2020-09-08 06:17] LABS: Phosphorus 4.1 mg/dL (2.3-4.7)
[2020-09-08 06:18] LABS: Anion Gap 11 mmol/L (10-20); BUN (Urea Nitrogen) 22 mg/dL (9.8-20.1); Calc. Creatinine Clearance 36 mL/min (70-130); Calcium 8.7 mg/dL (7.8-10.44); Carbon Dioxide 26 mmol/L (23-31); Chloride 102 mmol/L (98-107); Glucose 104 mg/dL (83-110); Magnesium 1.8 mg/dL (1.6-2.6); Potassium 4.3 mmol/L (3.5-5.1); Sodium 135 mmol/L (136-145)
[2020-09-08 08:39] LABS: SARS-CoV-2 PCR by NAA Not Detected (NotDetected)
[2020-09-08] MEDS ORDERED: TETANUS AND DIPHTHERIA TOX/PF 0.5 ML DISP.SYRIN IM ONE (09:00)
[2020-09-08] MEDS: Famotidine 20 MG TAB PO SCH (09:49)
[2020-09-08] MEDS: Polyethylene Glycol 3350 17 GM Packet PO SCH (09:50)
[2020-09-08] MEDS: Senokot S 8.6-50 MG TAB PO SCH ×2 (09:50→20:27)
[2020-09-08] MEDS ORDERED: Bupivacaine HCl 0.5%/Epinephrine 1:200,000/PF 30 ml Vial ONE (14:24)
[2020-09-08] MEDS ORDERED: Ondansetron PF 4 MG/2 ML Vial ONE (14:42)
[2020-09-08] MEDS ORDERED: PHENYLEPHRINE-NS 100 MCG/ML 10 ML SYRINGE ONE (14:42)
[2020-09-08] MEDS ORDERED: Dexamethasone 20 MG/5 ML VIAL ONE (14:42)
[2020-09-08] MEDS ORDERED: Rocuronium Bromide 10 MG/ML (10ML VIAL) ONE (14:42)
[2020-09-08] MEDS ORDERED: Glycopyrrolate 0.2 MG/ML 5 ML SYRINGE ONE (14:42)
[2020-09-08] MEDS ORDERED: PROPOFOL 200 MG/20 ML VIAL ONE (14:42)
[2020-09-08] MEDS ORDERED: Fentanyl 100 MCG/2 ML VIAL ONE ×2 (15:02→16:35)
[2020-09-08] MEDS ORDERED: hydrALAZINE 20 MG/ML VIAL ONE (16:50)
[2020-09-08] MEDS ORDERED: Ondansetron HCl/PF 4 MG/2 ML Vial IVP PRN (16:52)
[2020-09-08] MEDS ORDERED: Promethazine HCl 25 MG/ML VIAL SLOW IVP PRN (16:52)
[2020-09-08] MEDS ORDERED: Promethazine HCl 25 MG/ML VIAL IM PRN (16:52)
[2020-09-08] MEDS ORDERED: Magnesium 2 GM/50 ML 2 GM in Premix Bag 1 BAG IVPB SCH (17:30)
[2020-09-08] MEDS: Amlodipine 5 MG TAB PO SCH (20:28)
[2020-09-08] MEDS: CEFAZOLIN 2 GM in Premix Bag 1 BAG IVPB SCH (23:22)
[2020-09-09] MEDS: Sodium Chloride 0.9% 1,000 ML IV SCH (01:52)
[2020-09-09] MEDS: Cyclobenzaprine 10 MG TAB PO PRN ×2 (03:05→20:12)
[2020-09-09] MEDS: Acetaminophen 500 MG TAB PO SCH ×3 (05:37→17:37)
[2020-09-09] MEDS: traMADol HCl 50 MG TAB PO SCH ×3 (05:37→17:38)
[2020-09-09 05:48] LABS: #Lymphocytes 0.4 thou/uL (1.20-3.40); #Monocytes 0.5 thou/uL (0.11-0.59); #Neutrophils 9.7 thou/uL (1.40-6.50); %Basophils 0.1 % (0.0-1.0); %Eosinophils 0.1 % (0.0-10.0); %Lymphocytes 3.9 % (21.0-51.0); %Monocytes 4.4 % (0.0-10.0); %Neutrophils 91.6 % (42.0-75.0); Hemoglobin 10.7 g/dL (12.0-16.0); Mean Corpuscular HGB CONC 33.1 g/dL (32.0-36.0); Mean Corpuscular Hemoglobin 31.6 pg (27.0-31.0); Mean Corpuscular Volume 95.5 fL (78.0-98.0); Mean Platelet Volume 7.8 fL (7.4-10.4); Platelet Count 137 thou/uL (130-400); RBC Distribution Width 11.6 % (11.5-14.5); Red Blood Cell (RBC) Count 3.38 mill/uL (4.20-5.40); White Blood Cell (WBC) Count 10.6 thou/uL (4.8-10.8)
[2020-09-09] MEDS: CEFAZOLIN 2 GM in Premix Bag 1 BAG IVPB SCH ×2 (06:18→14:50)
[2020-09-09] MEDS: Polyethylene Glycol 3350 17 GM Packet PO SCH (08:25)
[2020-09-09] MEDS: Famotidine 20 MG TAB PO SCH (08:25)
[2020-09-09] MEDS: Senokot S 8.6-50 MG TAB PO SCH (08:25)
[2020-09-09] MEDS: Lisinopril 10 MG TAB PO SCH (08:25)
[2020-09-09] MEDS ORDERED: Acetaminophen 325 MG TAB PO SCH (11:30)
[2020-09-09] MEDS ORDERED: Acetaminophen 325 MG TAB ONE (11:47)
[2020-09-09] MEDS ORDERED: traMADol HCl 50 MG TAB ONE (11:48)
[2020-09-09] MEDS ORDERED: Melatonin 3 MG TAB PO PRN (18:46)
[2020-09-09] MEDS: Aspirin 81 mg Enteric Coated Tablet PO SCH (20:13)
[2020-09-09] MEDS: Amlodipine 5 MG TAB PO SCH (20:13)
[2020-09-10] MEDS: Acetaminophen 500 MG TAB PO SCH ×3 (00:02→12:00)
[2020-09-10] MEDS: traMADol HCl 50 MG TAB PO SCH ×2 (00:14→05:08)
[2020-09-10] MEDS: Senokot S 8.6-50 MG TAB PO SCH ×2 (00:14→09:00)
[2020-09-10] MEDS ORDERED: diphenhydrAMINE 50 MG/ML VIAL IVP PRN (01:04)
[2020-09-10] MEDS ORDERED: diphenhydrAMINE 25 MG CAP PO PRN (01:12)
[2020-09-10 06:00] LABS: #Eosinphils 0.2 thou/uL (0.0-0.7); #Lymphocytes 0.6 thou/uL (1.20-3.40); #Monocytes 0.5 thou/uL (0.11-0.59); #Neutrophils 6.9 thou/uL (1.40-6.50); %Basophils 0.4 % (0.0-1.0); %Eosinophils 2.3 % (0.0-10.0); %Lymphocytes 7.6 % (21.0-51.0); %Neutrophils 83.6 % (42.0-75.0); Hemoglobin 9.8 g/dL (12.0-16.0); Mean Corpuscular HGB CONC 32.7 g/dL (32.0-36.0); Mean Corpuscular Hemoglobin 31.1 pg (27.0-31.0); Mean Corpuscular Volume 94.9 fL (78.0-98.0); Mean Platelet Volume 7.9 fL (7.4-10.4); Platelet Count 122 thou/uL (130-400); RBC Distribution Width 11.4 % (11.5-14.5); Red Blood Cell (RBC) Count 3.17 mill/uL (4.20-5.40); White Blood Cell (WBC) Count 8.2 thou/uL (4.8-10.8)
[2020-09-10] MEDS: Famotidine 20 MG TAB PO SCH (09:00)
[2020-09-10] MEDS: Aspirin 81 mg Enteric Coated Tablet PO SCH (09:00)
[2020-09-10] MEDS: Lisinopril 10 MG TAB PO SCH (09:00)
[2020-09-10] MEDS: Polyethylene Glycol 3350 17 GM Packet PO SCH (09:00)
[2020-09-10] MEDS: hydrALAZINE 20 MG/ML VIAL SLOW IVP PRN (12:26)
[2020-09-10] MEDS ORDERED: hydrALAZINE 20 MG/ML VIAL SLOW IVP PRN ×2 (12:29→15:05)
[2020-09-10] MEDS ORDERED: Ketorolac Tromethamine 30 MG/ML VIAL IVP SCH ×3 (12:30→18:00)
[2020-09-10 13:22] LABS: Anion Gap 11 mmol/L (10-20); BUN (Urea Nitrogen) 19 mg/dL (9.8-20.1); Calc. Creatinine Clearance 42 mL/min (70-130); Carbon Dioxide 24 mmol/L (23-31); Chloride 100 mmol/L (98-107); Glucose 107 mg/dL (83-110); Magnesium 1.9 mg/dL (1.6-2.6); Phosphorus 3.1 mg/dL (2.3-4.7); Potassium 4.2 mmol/L (3.5-5.1); Sodium 131 mmol/L (136-145)
[2020-09-10] MEDS ORDERED: Ketorolac Tromethamine 30 MG/ML VIAL IVP PRN (15:07)
[2020-09-10] MEDS ORDERED: Sodium Chloride 0.9% 1,000 ML IV SCH (15:15)
[2020-09-10 16:04] VITALS: BP 183/53; TEMP 98.1
[2020-09-10] MEDS ORDERED: Amlodipine 10 MG TAB PO SCH (21:00)
== END 2020-09-10 21:00 | disposition home or self-care (01) | DRG 522 ==
LOC: ERS 19:13 → SURG A 22:19
PROVIDERS: ADMIT Surgery; ATTEND Surgery
PROC: 0SRS0JZ Replacement of Left Hip Joint, Femoral Surface with Synthetic Substitute, Open Approach (ICD-10-PCS; principal; 2020-09-08)
DX: S72.102A Unspecified trochanteric fracture of left femur, initial encounter for closed fracture (principal); E87.1 Hypo-osmolality and hyponatremia; R44.3 Hallucinations, unspecified; K21.9 Gastro-esophageal reflux disease without esophagitis; M41.9 Scoliosis, unspecified; Z88.2 Allergy status to sulfonamides; Z88.5 Allergy status to narcotic agent; I12.9 Hypertensive chronic kidney disease with stage 1 through stage 4 chronic kidney disease, or unspecified chronic kidney disease; N18.30 Chronic kidney disease, stage 3 unspecified; W18.30XA Fall on same level, unspecified, initial encounter
CPT/HCPCS: 36415; 70450; 71045; 72125; 72170; 80048; 80053; 81003; 81015; 83735; 84100; 85025; 85610; 85730; 87635; 93005; 94640; 96374; G0390; J0360; J0690; J1100; J1885; J2270; J2405; J2704; J3010; J3475; J7620; Q0163; U0003; U0005